=== PATIENT | male | born 1945 | race Caucasian/White ===

== ENCOUNTER 2017-04-25 07:26 | Day surgery (SDC) | payer MEDICAID ==
[2017-04-25] MEDS ORDERED: Lactated Ringer's 500 ML IV ONE (08:08)
[2017-04-25] MEDS ORDERED: Propofol 10 mg/ml Inj (20 ML) ONE (09:22)
[2017-04-25 10:11] VITALS: BP 120/73; PULSE 59; RESP 18; TEMP 96.8; O2SAT 99
== END 2017-04-25 11:02 | disposition home or self-care (01) ==
LOC: H.ENDO 07:26
PROVIDERS: ATTEND Internal Medicine Gastroenterology
DX: Z12.11 Encounter for screening for malignant neoplasm of colon (principal); K64.8 Other hemorrhoids; K29.50 Unspecified chronic gastritis without bleeding; K20.9 Esophagitis, unspecified; B96.81 Helicobacter pylori [H. pylori] as the cause of diseases classified elsewhere